=== PATIENT | male | born 1980 | race Caucasian/White ===

== ENCOUNTER 2020-04-16 07:06 | Day surgery (SDC) | payer OTHER ==
[2020-04-15 11:52] VITALS: BMI 33.0
[2020-04-16] MEDS ORDERED: AFRIN NASAL MIST 15 ML BOT ONE ×2 (07:47→08:10)
[2020-04-16] MEDS ORDERED: Lidocaine 1% w/Epinephrine 1:100K 20 ML VIAL ONE (08:10)
[2020-04-16] MEDS ORDERED: Bacitracin Zinc Ointment 30 gm TUBE ONE (08:10)
[2020-04-16] MEDS ORDERED: Famotidine/PF 20 mg/2ml Vial ONE (08:14)
[2020-04-16] MEDS ORDERED: Fentanyl 100 MCG/2 ML VIAL ONE (08:14)
[2020-04-16] MEDS ORDERED: Lidocaine 4% Topical Sol 50 ML BOT ONE (08:21)
[2020-04-16] MEDS ORDERED: Ketorolac Tromethamine 30 MG/ML VIAL ONE (09:50)
[2020-04-16] MEDS ORDERED: Metoclopramide HCl 10 MG/2 ML VIAL ONE (09:50)
[2020-04-16] MEDS ORDERED: Dexamethasone 20 MG/5 ML VIAL ONE (09:50)
[2020-04-16] MEDS ORDERED: PROPOFOL 200 MG/20 ML VIAL ONE (09:50)
[2020-04-16] MEDS ORDERED: Lidocaine 1% PF 5 ML VIAL ONE (09:50)
[2020-04-16] MEDS ORDERED: Ondansetron PF 4 MG/2 ML Vial ONE (09:50)
[2020-04-16] MEDS ORDERED: Meperidine HCl/PF 25 MG/ML VIAL ONE (09:54)
--- NOTE | 2020-04-17 08:17 | OP ---
DATE OF PROCEDURE: 04/16/2020 PREOPERATIVE DIAGNOSIS: 1. Chronic rhinosinusitis. 2. Nasal septal deviation. 3. Bilateral inferior turbinate hypertrophy. 4. Nasal obstruction. POSTOPERATIVE DIAGNOSES: 1. Chronic rhinosinusitis. 2. Nasal septal deviation. 3. Bilateral inferior turbinate hypertrophy. 4. Nasal obstruction. PROCEDURES PERFORMED: 1. Bilateral endoscopic sinus surgery, total ethmoidectomies. 2. Bilateral endoscopic sinus surgery, maxillary antrostomies. 3. Nasoseptoplasty. 4. Bilateral inferior turbinate submucosal resection. ESTIMATED BLOOD LOSS: 20 mL. COMPLICATIONS: None. ANESTHESIA: GETA. PROCEDURE IN DETAIL: Patient was taken to the operating room and placed supine on the table. General endotracheal anesthesia was obtained by the anesthesia staff. Then 1% lidocaine with 1:100,000 epinephrine was injected into the nasal septum as well as the inferior turbinates. The patient was prepped and draped in standard surgical fashion. The Afrin pledgets were then removed. A Shaka incision was made on the left nasal septum. Submucoperichondrial dissection was performed bilaterally of the deviated portions of the septum, which included the maxillary crest and the crest deviation, as well as the mid portion of the septum. Cartilage and bony deviation was removed, leaving a generous caudal and dorsal strut. Any straight pieces of cartilage were then placed within the cartilage press, pressed, straightened, and then placed between the mucoperichondrial flaps, which were then closed using a 4-0 gut stitch. The inferior turbinates were then punctured with the submucosal Coblation machine, and 3 separate coblations were delivered to the anterior inferior portion of the inferior turbinates. Following this, the nasal cavity was irrigated. All debris was removed. An orogastric tube was placed. Gastric contents and Chavez splints were then placed in the nasal cavity and sutured with a 3-0 silk stitch. Following this, a 0-degree endoscope was advanced into the middle meatus and the middle turbinate was gently medialized using a Melrose elevator bilaterally. The uncinate process was then visualized and was anteriorly fractured using a ball-ended probe. The uncinate process was then removed using the 0-degree microdebrider and 40-degree microdebrider bilaterally. Following this, the natural maxillary sinus ostia was identified and was widened using the 0-degree microdebrider and straight Blakesley forceps bilaterally. Following this, ethmoidal bulla was identified and was punctured on its medial and inferior aspect using the 0-degree microdebrider bilaterally. The ethmoidal bulla was then removed using the microdebrider and up-biting Blakesley forceps bilaterally. The grand lamella was then identified and was punctured into the posterior ethmoidal cells bilaterally using 0-degree microdebrider. Following this, working from posterior to anterior, the ethmoidal cells were opened protecting the cribriform plate throughout the procedure. Following this, the frontal sinus outflow tracts were visualized with a 45-degree endoscope and were noted to be adequately patent. The nasal cavity was then irrigated. NasoPore packing was placed within the middle meatus. Chavez splints were then placed and secured. The patient tolerated the procedure well. Job ID: [id number]
--- NOTE | 2020-04-17 20:58 | EKG ---
Test Reason : PREOP Blood Pressure : / mmHG Vent. Rate : 055 BPM Atrial Rate : 055 BPM P-R Int : 168 ms QRS Dur : 108 ms QT Int : 406 ms P-R-T Axes : 042 071 027 degrees QTc Int : 388 ms Sinus bradycardia with sinus arrhythmia Otherwise normal ECG No previous ECGs available Confirmed by Viet BARRIOS ([id number]) on 04/17/2020 8:57:49 PM Referred By: RADHA Confirmed By:Viet BARRIOS
== END 2020-04-16 11:25 | disposition home or self-care (01) ==
LOC: SDC 07:06
PROVIDERS: ATTEND Otolaryngology Plastic Surgery within the Head & Neck
PROC: 09TL0ZZ Resection of Nasal Turbinate, Open Approach (ICD-10-PCS; principal; 2020-04-16)
PROC: 09TU8ZZ Resection of Right Ethmoid Sinus, Via Natural or Artificial Opening Endoscopic (ICD-10-PCS; principal; 2020-04-16)
PROC: 099R8ZZ Drainage of Left Maxillary Sinus, Via Natural or Artificial Opening Endoscopic (ICD-10-PCS; principal; 2020-04-16)
PROC: 09TV8ZZ Resection of Left Ethmoid Sinus, Via Natural or Artificial Opening Endoscopic (ICD-10-PCS; principal; 2020-04-16)
PROC: 09SM0ZZ Reposition Nasal Septum, Open Approach (ICD-10-PCS; principal; 2020-04-16)
PROC: 099Q8ZZ Drainage of Right Maxillary Sinus, Via Natural or Artificial Opening Endoscopic (ICD-10-PCS; principal; 2020-04-16)
DX: J32.8 Other chronic sinusitis (principal); J34.2 Deviated nasal septum; J34.3 Hypertrophy of nasal turbinates; J34.89 Other specified disorders of nose and nasal sinuses; I10 Essential (primary) hypertension; F32.9 Major depressive disorder, single episode, unspecified; J30.1 Allergic rhinitis due to pollen; J30.81 Allergic rhinitis due to animal (cat) (dog) hair and dander; J30.89 Other allergic rhinitis; E66.9 Obesity, unspecified; Z68.33 Body mass index [BMI] 33.0-33.9, adult; Z87.891 Personal history of nicotine dependence; Z79.899 Other long term (current) drug therapy
CPT/HCPCS: 93005; 93010; J1100; J1885; J2175; J2405; J2704; J2765; J3010; S0028